=== PATIENT | female | born 1990 | race Caucasian/White ===

== ENCOUNTER 2016-05-26 15:45 | Emergency (ER) | payer BC ==
[2016-05-26 16:03] VITALS: BP 109/69
--- NOTE | 2016-05-26 16:52 | UC ---
Respiratory Complaint HPI - HPI Summary HPI Summary: 26 yo female with a 5 day hx of sore throat/runny nose/sinus pressure/cough has felt feverish chills no n/v/d - History of Current Complaint Chief Complaint: UCGeneralIllness Stated Complaint: COUGH / SORE THROAT Time Seen by Provider: 05/26/16 16:37 Hx Obtained From: Patient Hx Last Menstrual Period: 05/14/16 Onset/Duration: Gradual Onset, Lasting Days Timing: Constant Severity Initially: Moderate Severity Currently: Moderate Pain Intensity: 4 Pain Scale Used: 0-10 Numeric Character: Cough: Nonproductive Aggravating Factors: Nothing Associated Signs And Symptoms: Positive: Fever, Chills, Nasal Congestion, Hoarseness, Sinus Discomfort - Allergies/Home Medications Allergies/Adverse Reactions: Allergies Allergy/AdvReac Type Severity Reaction Status Date / Time Amoxicillin AdvReac GI Upset Verified 05/26/16 16:03 cillins Allergy Unknown Uncoded 05/26/16 16:03 Reaction Details PMH/Surg Hx/FS Hx/Imm Hx Endocrine History Of: Denies: Diabetes, Thyroid Disease, Hyperthyroidism, Hypothyroidism, Dyslipidemia Cardiovascular History Of: Denies: Cardiac Disorders, Hypertension, Pacemaker/ICD, Myocardial Infarction , Congestive Heart Failure, Atrial Fibrillation, Deep Vein Thrombosis, Bleeding Disorders Respiratory History Of: Reports: Asthma - She had one episode several months ago in which she was prescribed albutero Denies: COPD, Bronchitis, Pneumonia, Pulmonary Embolism GI/ History Of: Denies: Gastroesophageal Reflux, Ulcer, Gastrointestinal Bleed, Gall Bladder Disease, Kidney Stones, Diverticulitis, Renal Disease, Urosepsis Neurological History Of: Denies: TIA, CVA, Dementia, Seizures, Migraine Psychological History Of: Denies: Anxiety, Depression, Bipolar Disorder, Schizophrenia, Post Traumatic Stress Disorder Cancer History Of: Denies: Lung Cancer, Colorectal Cancer, Breast Cancer, Prostate Cancer, Cervical Cancer Other History Of: Negative For: HIV, Hepatitis B, Hepatitis C - Surgical History Surgical History: Yes Surgery Procedure, Year, and Place: widom teeth - Family History Known Family History: Negative: Cardiac Disease, Hypertension, Diabetes Family History: NON CONTRIBUTORY - Social History Alcohol Use: Rare Substance Use Type: None Smoking Status (MU): Never Smoked Tobacco Have You Smoked in the Last Year: No Household Exposure Type: Cigarettes Review of Systems Constitutional: Fever, Chills Skin: Negative Eyes: Negative ENT: Sore Throat, Nasal Discharge Respiratory: Cough Cardiovascular: Negative Gastrointestinal: Negative Genitourinary: Negative Motor: Negative Neurovascular: Negative Musculoskeletal: Myalgia Neurological: Negative Psychological: Negative All Other Systems Reviewed And Are Negative: Yes Physical Exam Triage Information Reviewed: Yes Appearance: Well-Appearing, No Pain Distress, Well-Nourished Vital Signs: Initial Vital Signs Temp 98.7 F 05/26/16 15:59 Pulse 71 05/26/16 15:59 Resp 16 05/26/16 15:59 BP 109/69 05/26/16 15:59 Pulse Ox 99 05/26/16 15:59 Eye Exam: Normal Eyes: Positive: Conjunctiva Clear ENT: Positive: Hearing grossly normal, Pharynx normal, Nasal congestion, Nasal drainage, TMs normal, Tonsillar swelling, Other: - bilat max sinus tenderness. Negative: Pharyngeal erythema, TM bulging, TM dull, TM red, Tonsillar exudate, Trismus, Muffled/hoarse voice Dental: Negative: Gross Decay/Caries @, Dental Fracture @, Abscess @ Neck: Positive: Supple, Nontender, Enlarged Nodes @ - right ant cervical node Respiratory: Positive: Lungs clear, Normal breath sounds, No respiratory distress, No accessory muscle use Cardiovascular: Positive: RRR, No Murmur Musculoskeletal: Positive: Strength Intact, ROM Intact, No Edema Neurological: Positive: Alert Psychological Exam: Normal Skin Exam: Normal UC Diagnostic Evaluation - Laboratory O2 Sat by Pulse Oximetry: 99 - normal/not hypoxic Respiratory Course/Dx - Differential Dx/Diagnosis Provider Diagnoses: acute sinusitis Discharge - Discharge Plan Condition: Stable Disposition: HOME Prescriptions: Azithromycin TAB* [Zithromax TAB*] 250 mg PO DAILY #6 tab Patient Education Materials: Sinusitis (ED) Forms: *Work Release Referrals: Trini Gandhi MD [Primary Care Provider] - 6 Days (if not better)
== END 2016-05-26 17:00 | disposition home or self-care (01) ==
LOC: UCCORT 15:45
DX: J01.90 Acute sinusitis, unspecified (principal); Z88.1 Allergy status to other antibiotic agents
CPT/HCPCS: 99212; G0463

== ENCOUNTER 2016-12-28 17:36 | Emergency (ER) | payer BC ==
--- NOTE | 2016-12-28 18:10 | UC ---
Skin Complaint HPI - HPI Summary HPI Summary: patient has had a rash of red macule like patched on abdomen for the past 2 weeks, does not itch and is not painful, she is a few weeks - History of Current Complaint Time Seen by Provider: 12/28/16 17:49 Stated Complaint: STOMACH SKIN COMPLAINT Hx Obtained From: Patient Hx Last Menstrual Period: 05/14/16 Onset/Duration: Sudden Onset, Lasting Weeks Skin Exposure Onset/Duration: Weeks Ago Timing: Constant Onset Severity: Mild Current Severity: None Location: Generalized - abdomen - Allergy/Home Medications Allergies/Adverse Reactions: Allergies Allergy/AdvReac Type Severity Reaction Status Date / Time Amoxicillin AdvReac GI Upset Verified 05/26/16 16:03 cillins Allergy Unknown Uncoded 05/26/16 16:03 Reaction Details Review of Systems Constitutional: Negative Skin: Rash Eyes: Negative ENT: Negative Respiratory: Negative Cardiovascular: Negative Gastrointestinal: Negative Genitourinary: Negative Motor: Negative Neurovascular: Negative Musculoskeletal: Negative Neurological: Negative Psychological: Negative Is Patient Immunocompromised?: No All Other Systems Reviewed And Are Negative: Yes PMH/Surg Hx/FS Hx/Imm Hx Previously Healthy: Yes Other History Of: Negative For: HIV, Hepatitis B, Hepatitis C - Surgical History Surgical History: Yes Surgery Procedure, Year, and Place: widom teeth - Family History Known Family History: Negative: Cardiac Disease, Hypertension, Diabetes Family History: NON CONTRIBUTORY - Social History Alcohol Use: Rare Substance Use Type: None Smoking Status (MU): Never Smoked Tobacco Have You Smoked in the Last Year: No Household Exposure Type: Cigarettes Physical Exam Triage Information Reviewed: Yes Appearance: Well-Appearing, No Pain Distress, Well-Nourished Vital Signs Reviewed: Yes Eye Exam: Normal ENT Exam: Normal Dental Exam: Normal Neck exam: Normal Respiratory Exam: Normal Respiratory: Positive: Chest non-tender, Lungs clear, Normal breath sounds Cardiovascular Exam: Normal Cardiovascular: Positive: RRR, No Murmur, Pulses Normal Abdominal Exam: Normal Abdomen Description: Positive: Nontender, No Organomegaly, Soft Bowel Sounds: Positive: Present Musculoskeletal Exam: Normal Musculoskeletal: Positive: Strength Intact, ROM Intact, No Edema Neurological Exam: Normal Neurological: Positive: Alert, Muscle Tone Normal Psychological Exam: Normal Skin: Positive: rashes - macule patches on abdomen, light pink in color, non itchy and painless Course/Dx - Course Course Of Treatment: hx obtained, exam performed ,meds reviewed, no treatment given, educated on pitoryasis rosea - Differential Diagnoses - Skin Complaint Differential Diagnoses: Contact Dermatitis, Drug Rash, Local Allergic Reaction, Urticaria - Diagnoses Provider Diagnoses: pitoriasis rosea Discharge - Discharge Plan Condition: Stable Disposition: HOME Patient Education Materials: Pityriasis rosea (ED) Referrals: Trini Gandhi MD [Primary Care Provider] - Additional Instructions: 1. no treatment needed, it is self limiting 2. Use hydrocortisone as needed.
[2016-12-28 18:19] VITALS: BP 109/72
== END 2016-12-28 18:24 | disposition home or self-care (01) ==
LOC: UCCORT 17:36
DX: M77.8 Other enthesopathies, not elsewhere classified (principal)
CPT/HCPCS: 99211; G0463

== ENCOUNTER 2017-07-09 08:45 | Emergency (ER) | payer BC ==
[2017-07-09 10:01] VITALS: BP 111/73
--- NOTE | 2017-07-09 10:20 | UC ---
UC General HPI - HPI Summary HPI Summary: pt is c/o frequent, urgent urination with burning. onset yesterday. notes occasional slight blood. no vaginal d/co or concern for std. thinks uti. - History of Current Complaint Chief Complaint: UCGU Stated Complaint: URINARY COMPLAINT Time Seen by Provider: 07/09/17 10:15 Hx Obtained From: Patient Hx Last Menstrual Period: 06/28/17 Onset/Duration: Gradual Onset Timing: Constant Pain Intensity: 5 Aggravating: nothing Alleviating: nothing Associated Signs & Symptoms: Positive: Dysuria. Negative: Abdominal Pain, Fever - Allergy/Home Medications Allergies/Adverse Reactions: Allergies Allergy/AdvReac Type Severity Reaction Status Date / Time amoxicillin Allergy GI Upset Verified 07/09/17 09:52 cillins Allergy Unknown Uncoded 07/09/17 09:52 Reaction Details Home Medications: Home Medications [place]-3 Fatty Acids/Fish Oil [Fish Oil 1,000 mg Capsule] 1 each PO DAILY [History Confirmed 07/09/17] PMH/Surg Hx/FS Hx/Imm Hx Previously Healthy: Yes Other History Of: Negative For: HIV, Hepatitis B, Hepatitis C - Surgical History Surgical History: Yes Surgery Procedure, Year, and Place: widom teeth. D&C 01/2017 - Family History Known Family History: Negative: Cardiac Disease, Hypertension, Diabetes Family History: NON CONTRIBUTORY - Social History Lives: With Family Alcohol Use: Rare Substance Use Type: None Smoking Status (MU): Never Smoked Tobacco Have You Smoked in the Last Year: No Household Exposure Type: Cigarettes Review of Systems Constitutional: Negative Skin: Negative Eyes: Negative ENT: Negative Respiratory: Negative Cardiovascular: Negative Gastrointestinal: Negative Genitourinary: Dysuria, Hematuria, Frequency, Urgency Motor: Negative Neurovascular: Negative Musculoskeletal: Negative Neurological: Negative Psychological: Negative Is Patient Immunocompromised?: No All Other Systems Reviewed And Are Negative: Yes Physical Exam Triage Information Reviewed: Yes Appearance: Well-Appearing Vital Signs: Initial Vital Signs Temp 99.6 F 07/09/17 09:56 Pulse 58 07/09/17 09:56 Resp 16 07/09/17 09:56 BP 111/73 07/09/17 09:56 Pulse Ox 98 07/09/17 09:56 Vital Signs Reviewed: Yes Eyes: Positive: Conjunctiva Clear ENT: Positive: Normal ENT inspection Neck: Positive: Supple, Nontender, No Lymphadenopathy Respiratory: Positive: Lungs clear, Normal breath sounds Cardiovascular: Positive: RRR, No Murmur Abdomen Description: Positive: Nontender, No Organomegaly, Soft. Negative: CVA Tenderness (R), CVA Tenderness (L), Distended, Guarding Bowel Sounds: Positive: Present Neurological: Positive: Alert Psychological: Positive: Age Appropriate Behavior Skin Exam: Normal Diagnostics - Laboratory Diagnostic Studies Completed/Ordered: u/a=blood, leukocytes. culture pending Course/Dx - Course Course Of Treatment: will tx for uti with macrobid - Differential Dx - Multi-Symptom Provider Diagnoses: UTI Discharge - Sign-Out/Discharge Documenting (check all that apply): Discharge - Discharge Plan Condition: Stable Disposition: HOME Prescriptions: Nitrofurantoin Macrocrystals* [Macrodantin*] 100 mg PO BID 5 Days #10 cap Patient Education Materials: Urinary Tract Infection in Women (ED) Referrals: Trini Gandhi MD [Primary Care Provider] - 7 Days - Billing Disposition and Condition Condition: STABLE Disposition: HOME
== END 2017-07-09 10:25 | disposition home or self-care (01) ==
LOC: UCCORT 08:45
DX: Z88.0 Allergy status to penicillin (principal); B96.20 Unspecified Escherichia coli [E. coli] as the cause of diseases classified elsewhere; Z16.11 Resistance to penicillins; Z16.20 Resistance to unspecified antibiotic; N39.0 Urinary tract infection, site not specified
CPT/HCPCS: 81003; 87077; 87086; 87186; 99212; G0463